=== PATIENT | male | born 1930 | race Caucasian/White ===

== ENCOUNTER 2018-09-04 16:29 | Inpatient (IN) | payer OTHER ==
[~2018-09-04] VITALS: Ht 180.3 cm; Wt 80.9 kg
[2018-09-04 16:50] LABS: Basophils # (auto) 0 uL; Basophils % (auto) 0.2 % (0.0-2.0); Eosinophils # (auto) 0.7 uL; Eosinophils % (auto) 8.2 % (0.0-7.0); Hematocrit 34.6 % (41.0-53.0); Hemoglobin 11.9 g/dL (13.5-17.5); Lymphocytes # (auto) 1.2 uL; Lymphocytes % (auto) 13.9 % (10.0-50.0); Mean Corpuscular Hemoglobin 33.4 pg (28.0-32.0); Mean Corpuscular Hgb Conc. 34.3 g/dL (32.0-36.0); Mean Corpuscular Volume 97.2 fL (80.0-100.0); Monocytes # (auto) 0.9 uL; Monocytes % (auto) 10.9 % (0.0-12.0); Neutrophils # (auto) 5.8 uL; Neutrophils % (auto) 66.8 % (37.0-80.0); Nucleated Red Blood Cells % 0.3 %; Platelet Count (auto) 345 10^3/uL (140-450); Red Blood Cells 3.56 10^6/uL (4.5-5.90); Red Cell Distribution Width 13.4 % (11.8-14.3); White Blood Cell 8.7 10^3/uL (4.4-10.8)
[2018-09-04 17:07] LABS: Albumin 2.5 g/dL (3.4-5.0); BUN/Creatinine Ratio 10.4; Calcium 7.9 mg/dL (8.5-10.1); Magnesium 2.1 mg/dL (1.6-2.6); Potassium 3.9 mmol/L (3.5-5.1)
[2018-09-04 17:12] LABS: Bilirubin, Total 0.8 mg/dL (0.2-1.0); Total Protein 7.1 g/dL (6.4-8.2)
[2018-09-04] MEDS ORDERED: IOHEXOL 350 MG/ML 100ML IJ ONE (17:41)
[2018-09-04] MEDS ORDERED: ENOXAPARIN SOD 100 MG/1 ML SYRINGE SC ONE (19:15)
[2018-09-04] MEDS ORDERED: FUROSEMIDE 40 MG/4 ML VIAL IV ONE (21:45)
[2018-09-04] MEDS ORDERED: MORPHINE SULFATE 4 MG/ML SYR/VIAL IV PRN (23:30)
[2018-09-04] MEDS ORDERED: ONDANSETRON HCL 4 MG/2 ML VIAL IV PRN (23:30)
[2018-09-04] MEDS ORDERED: NITROGLYCERIN 0.4 MG SL TAB SL PRN (23:30)
[2018-09-04] MEDS ORDERED: ACETAMINOPHEN 500 MG TAB PO PRN (23:30)
[2018-09-05 03:00] VITALS: BP 121/85
[2018-09-05 04:56] LABS: Urine WBC None Seen /hpf (0 - 3)
[2018-09-05 05:00] VITALS: BP 118/69
[2018-09-05 05:02] LABS: Urine Bacteria NONE SEEN /hpf (None Seen); Urine Blood TRACE /uL (Negative); Urine Specific Gravity 1.009 (1.001-1.035)
[2018-09-05 05:20] LABS: Basophils # (auto) 0.1 uL; Eosinophils # (auto) 0.5 uL; Neutrophils # (auto) 5.3 uL
[2018-09-05 05:23] LABS: Basophils % (auto) 1.4 % (0.0-2.0); Eosinophils % (auto) 6.7 % (0.0-7.0); Hematocrit 36.3 % (41.0-53.0); Hemoglobin 12.7 g/dL (13.5-17.5); Lymphocytes % (auto) 12.7 % (10.0-50.0); Mean Corpuscular Hgb Conc. 35.2 g/dL (32.0-36.0); Mean Corpuscular Volume 98.8 fL (80.0-100.0); Neutrophils % (auto) 66.2 % (37.0-80.0); Platelet Count (auto) 351 10^3/uL (140-450); Red Blood Cells 3.67 10^6/uL (4.5-5.90); Red Cell Distribution Width 13.2 % (11.8-14.3); White Blood Cell 7.9 10^3/uL (4.4-10.8)
[2018-09-05 05:24] LABS: Mean Corpuscular Hemoglobin 34.1 pg (28.0-32.0)
[2018-09-05 05:35] LABS: BUN/Creatinine Ratio 10.6; Calcium 8.4 mg/dL (8.5-10.1); Potassium 3.1 mmol/L (3.5-5.1)
[2018-09-05] MEDS ORDERED: TIM05OS EACHEYE (05:49)
[2018-09-05] MEDS ORDERED: [UNRECOGNIZED DRUG - CODE] OP (05:49)
[2018-09-05] MEDS ORDERED: OMEP20TA PO (05:49)
[2018-09-05] MEDS ORDERED: LOVA20TA4 PO (05:49)
[2018-09-05] MEDS ORDERED: LEVO25TA6 PO (05:49)
[2018-09-05] MEDS ORDERED: ASPI325T4 PO (05:49)
[2018-09-05] MEDS ORDERED: POTASSIUM CHL 20 Meq TABLET PO ONE ×2 (06:15→14:45)
[2018-09-05] MEDS: ENOXAPARIN SOD 80 MG/0.8ML SYRINGE SC SCH ×2 (08:03→21:29)
[2018-09-05 09:00] VITALS: BP 117/66
[2018-09-05] MEDS ORDERED: ASPirin-EC 81 mg tab PO SCH (10:00)
[2018-09-05 12:41] LABS: INR 1.12 (0.9-1.15); Partial Thromboplastin Time 31.6 sec (23.78-33.04); Prothrombin Time 11.9 sec (9.27-12.13)
[2018-09-05] MEDS ORDERED: LIDOCAINE 2%HCL (LOCAL ANESTH.) INJ 10ml MDV ONE (12:51)
[2018-09-05] MEDS ORDERED: IOHEXOL 350 MG/ML 100ML IJ ONE (12:51)
[2018-09-05 13:00] VITALS: BP 111/69
[2018-09-05] MEDS ORDERED: MIDAZOLAM HCL 1MG/1ML-2 ML VIAL ONE (13:01)
[2018-09-05] MEDS ORDERED: SODIUM CHL 0.9% 0 ML ONE (13:01)
[2018-09-05] MEDS ORDERED: ANGIOMAX 250 MG VIAL IV ONE (13:01)
[2018-09-05 16:44] VITALS: BP 115/70
[2018-09-05 21:59] VITALS: BP 112/66
[2018-09-06 05:00] VITALS: BP 124/73
[2018-09-06] MEDS ORDERED: ENOXAPARIN SOD 80 MG/0.8ML SYRINGE SC SCH (06:45)
[2018-09-06 07:00] LABS: Basophils # (auto) 0.2 uL; Basophils % (auto) 2.2 % (0.0-2.0); Eosinophils # (auto) 0.5 uL; Eosinophils % (auto) 6.8 % (0.0-7.0); Hematocrit 35.6 % (41.0-53.0); Hemoglobin 12.1 g/dL (13.5-17.5); Lymphocytes # (auto) 0.9 uL; Mean Corpuscular Hemoglobin 33.7 pg (28.0-32.0); Monocytes # (auto) 0.8 uL; Monocytes % (auto) 11.8 % (0.0-12.0); Neutrophils # (auto) 4.6 uL; Neutrophils % (auto) 66.2 % (37.0-80.0); Nucleated Red Blood Cells % 0.1 %; Platelet Count (auto) 390 10^3/uL (140-450); Red Cell Distribution Width 13.2 % (11.8-14.3)
[2018-09-06 07:21] LABS: Albumin 2.3 g/dL (3.4-5.0); BUN/Creatinine Ratio 10.7; Calcium 8.6 mg/dL (8.5-10.1); Potassium 4.6 mmol/L (3.5-5.1)
[2018-09-06 07:24] LABS: Bilirubin, Total 0.6 mg/dL (0.2-1.0); Total Protein 7.2 g/dL (6.4-8.2)
[2018-09-06 08:00] VITALS: BP 127/78
[2018-09-06 08:08] LABS: CRP High Sensitivity 9.43 mg/dL (< 0.3)
[2018-09-06] MEDS: ENOXAPARIN SOD 80 MG/0.8ML SYRINGE SC SCH ×2 (09:21→21:31)
[2018-09-06] MEDS ORDERED: LEV100T PO (11:44)
[2018-09-06] MEDS ORDERED: GLUC1CAP11 PO (11:44)
[2018-09-06] MEDS ORDERED: CHOL20007 PO (11:44)
[2018-09-06] MEDS ORDERED: COEN100C15 PO (11:44)
[2018-09-06] MEDS ORDERED: OME20T PO (11:44)
[2018-09-06] MEDS ORDERED: LOVA10TA2 PO (11:44)
[2018-09-06 12:00] VITALS: BP 118/70
[2018-09-06 16:00] VITALS: BP 130/80
[2018-09-06 21:30] VITALS: BP 118/72
[2018-09-06] MEDS: PRAVASTATIN SODIUM 20 MG TAB PO SCH (21:31)
[2018-09-06] MEDS: TIMOLOL MAL 0.5% OPTH(EYE) SOL 5ML EACHEYE SCH (22:06)
[2018-09-06] MEDS: FLUOROMETHOLONE ACETATE OP SCH (22:07)
[2018-09-07 05:00] VITALS: BP 129/79
[2018-09-07] MEDS: LEVOTHYROXINE SODIUM 100 MCG TAB PO SCH (06:02)
[2018-09-07 09:00] VITALS: BP 123/74
[2018-09-07] MEDS: ENOXAPARIN SOD 80 MG/0.8ML SYRINGE SC SCH ×2 (09:59→21:23)
[2018-09-07] MEDS: PANTOPRAZOLE 40 MG TAB PO SCH (10:00)
[2018-09-07] MEDS: FLUOROMETHOLONE ACETATE OP SCH ×2 (10:00→21:23)
[2018-09-07] MEDS: TIMOLOL MAL 0.5% OPTH(EYE) SOL 5ML EACHEYE SCH ×2 (10:00→21:22)
[2018-09-07 13:00] VITALS: BP 107/67
[2018-09-07 17:00] VITALS: BP 126/77
[2018-09-07] MEDS: PRAVASTATIN SODIUM 20 MG TAB PO SCH (21:23)
[2018-09-07 22:00] VITALS: BP 131/75
[2018-09-08] VITALS (25 sets, daily range): BP systolic 96–129; BP diastolic 46–76
[2018-09-08] MEDS: LEVOTHYROXINE SODIUM 100 MCG TAB PO SCH (06:03)
[2018-09-08 06:04] LABS: Basophils # (auto) 0.1 uL; Eosinophils # (auto) 0.6 uL; Lymphocytes # (auto) 1.1 uL; Monocytes # (auto) 0.9 uL
[2018-09-08 06:11] LABS: Basophils % (auto) 1.3 % (0.0-2.0); Eosinophils % (auto) 8.9 % (0.0-7.0); Hematocrit 35.5 % (41.0-53.0); Hemoglobin 12.3 g/dL (13.5-17.5); Lymphocytes % (auto) 15.1 % (10.0-50.0); Mean Corpuscular Hgb Conc. 34.6 g/dL (32.0-36.0); Mean Corpuscular Volume 98.1 fL (80.0-100.0); Monocytes % (auto) 12.9 % (0.0-12.0); Neutrophils # (auto) 4.3 uL; Neutrophils % (auto) 61.8 % (37.0-80.0); Nucleated Red Blood Cells % 0.2 %; Platelet Count (auto) 389 10^3/uL (140-450); Red Blood Cells 3.62 10^6/uL (4.5-5.90); Red Cell Distribution Width 13.5 % (11.8-14.3)
[2018-09-08 06:36] LABS: Albumin 2.3 g/dL (3.4-5.0); BUN/Creatinine Ratio 11.3; Calcium 8.3 mg/dL (8.5-10.1); Potassium 3.7 mmol/L (3.5-5.1)
[2018-09-08 06:39] LABS: Bilirubin, Total 0.4 mg/dL (0.2-1.0); Total Protein 7.2 g/dL (6.4-8.2)
[2018-09-08] MEDS ORDERED: LIDOCAINE 2%HCL (LOCAL ANESTH.) INJ 20ML MDV ONE (07:30)
[2018-09-08] MEDS ORDERED: IODIXANOL 320MG/ML 100ML BTL IV ONE (07:30)
[2018-09-08] MEDS ORDERED: VERAPAMIL 2.5MG/ML INJ 2ML VIAL IV ONE (09:47)
[2018-09-08] MEDS ORDERED: MIDAZOLAM HCL 1MG/1ML-2 ML VIAL ONE ×2 (09:48→12:29)
[2018-09-08] MEDS ORDERED: fentaNYL CITRATE 100 MCG/2 ML VL ONE (09:48)
[2018-09-08] MEDS ORDERED: SODIUM CHL 0.9% 0 ML ONE (09:49)
[2018-09-08] MEDS ORDERED: NITROGLYCERIN 5MG/ML 10ML VIAL IV ONE (09:49)
[2018-09-08] MEDS: TIMOLOL MAL 0.5% OPTH(EYE) SOL 5ML EACHEYE SCH ×2 (10:00→22:07)
[2018-09-08] MEDS: FLUOROMETHOLONE ACETATE OP SCH ×2 (10:00→22:00)
[2018-09-08] MEDS: ENOXAPARIN SOD 80 MG/0.8ML SYRINGE SC SCH (10:00)
[2018-09-08] MEDS: PANTOPRAZOLE 40 MG TAB PO SCH (10:00)
[2018-09-08] MEDS ORDERED: ANGIOMAX 250 MG VIAL IV ONE (10:24)
[2018-09-08] MEDS ORDERED: ATROPINE SULF 1 MG/10ml SYR ONE (10:46)
[2018-09-08] MEDS ORDERED: LIDOCAINE 2%HCL (LOCAL ANESTH.) INJ 10ml MDV ONE (10:54)
[2018-09-08] MEDS ORDERED: HEPARIN SODIUM (PORCINE) 5000 UNITS/ML 1ML VIAL ONE ×2 (11:00→11:16)
[2018-09-08] MEDS ORDERED: CLOPIDOGREL 300 MG TAB ONE (13:21)
[2018-09-08] MEDS ORDERED: ASPirin 325 MG TAB ONE (13:21)
[2018-09-08] MEDS: APIXABAN 5 MG TAB PO SCH (22:07)
[2018-09-08] MEDS: PRAVASTATIN SODIUM 20 MG TAB PO SCH (22:07)
[2018-09-09] VITALS (51 sets, daily range): BP systolic 98–143; BP diastolic 49–81
[2018-09-09] MEDS: LEVOTHYROXINE SODIUM 100 MCG TAB PO SCH (06:34)
[2018-09-09] MEDS: FLUOROMETHOLONE ACETATE OP SCH ×2 (10:00→21:13)
[2018-09-09] MEDS ORDERED: PATIENTS OWN MEDICATION (ELIQUIS 5 MG) PO SCH (10:00)
[2018-09-09] MEDS: TIMOLOL MAL 0.5% OPTH(EYE) SOL 5ML EACHEYE SCH ×2 (10:19→21:14)
[2018-09-09] MEDS: PANTOPRAZOLE 40 MG TAB PO SCH (10:19)
[2018-09-09] MEDS: APIXABAN 5 MG TAB PO SCH ×2 (10:19→21:13)
[2018-09-09] MEDS: PRAVASTATIN SODIUM 20 MG TAB PO SCH (21:13)
[2018-09-10 05:00] VITALS: BP 119/69
[2018-09-10] MEDS: LEVOTHYROXINE SODIUM 100 MCG TAB PO SCH (06:33)
[2018-09-10 09:00] VITALS: BP 121/77
[2018-09-10] MEDS: APIXABAN 5 MG TAB PO SCH ×2 (09:36→22:01)
[2018-09-10] MEDS: CLOPIDOGREL BISULFATE 75 MG TAB PO SCH (09:36)
[2018-09-10] MEDS: PANTOPRAZOLE 40 MG TAB PO SCH (09:36)
[2018-09-10] MEDS: TIMOLOL MAL 0.5% OPTH(EYE) SOL 5ML EACHEYE SCH ×2 (09:37→22:01)
[2018-09-10] MEDS: FLUOROMETHOLONE ACETATE OP SCH ×2 (09:37→22:01)
[2018-09-10 17:04] VITALS: BP 112/71
[2018-09-10 22:00] VITALS: BP 120/72
[2018-09-10] MEDS ORDERED: ATORVASTATIN 20 MG TAB PO SCH (22:00)
[2018-09-10] MEDS: PRAVASTATIN SODIUM 20 MG TAB PO SCH (22:02)
[2018-09-11 05:00] VITALS: BP 115/66
[2018-09-11] MEDS: LEVOTHYROXINE SODIUM 100 MCG TAB PO SCH (06:32)
[2018-09-11 08:07] VITALS: BP 136/77
[2018-09-11] MEDS: FLUOROMETHOLONE ACETATE OP SCH (10:00)
[2018-09-11] MEDS: APIXABAN 5 MG TAB PO SCH (10:06)
[2018-09-11] MEDS: CLOPIDOGREL BISULFATE 75 MG TAB PO SCH (10:06)
[2018-09-11] MEDS: PANTOPRAZOLE 40 MG TAB PO SCH (10:07)
[2018-09-11] MEDS: TIMOLOL MAL 0.5% OPTH(EYE) SOL 5ML EACHEYE SCH (10:07)
[2018-09-11 13:00] VITALS: BP 121/80
[2018-09-11 16:25] VITALS: BP 120/81
[2018-09-11 17:00] VITALS: BP 120/81
[2018-09-15] MEDS ORDERED: APIXABAN 5 MG TAB PO SCH (22:00)
== END 2018-09-11 18:05 | DRG 215 ==
LOC: ER 16:29 → TELE 16:30 → TELE-CENTR 09-05 02:43 → ICU WEST 09-08 13:32 → TELE-WESTW 09-09 22:25
PROVIDERS: ADMIT Nurse Practitioner Family; ATTEND Hospitalist
PROC: 4A023N7 Measurement of Cardiac Sampling and Pressure, Left Heart, Percutaneous Approach (ICD-10-PCS; principal; 2018-09-05)
PROC: B2111ZZ Fluoroscopy of Multiple Coronary Arteries using Low Osmolar Contrast (ICD-10-PCS; 2018-09-05)
PROC: B2151ZZ Fluoroscopy of Left Heart using Low Osmolar Contrast (ICD-10-PCS; 2018-09-05)
PROC: 02HA3RJ Insertion of Short-term External Heart Assist System into Heart, Intraoperative, Percutaneous Approach (ICD-10-PCS; 2018-09-08)
PROC: 027237Z Dilation of Coronary Artery, Three Arteries with Four or More Drug-eluting Intraluminal Devices, Percutaneous Approach (ICD-10-PCS; 2018-09-08)
PROC: 02C13ZZ Extirpation of Matter from Coronary Artery, Two Arteries, Percutaneous Approach (ICD-10-PCS; 2018-09-08)
PROC: 5A0221D Assistance with Cardiac Output using Impeller Pump, Continuous (ICD-10-PCS; 2018-09-08)
DX: I21.4 Non-ST elevation (NSTEMI) myocardial infarction (principal); I50.33 Acute on chronic diastolic (congestive) heart failure; I82.532 Chronic embolism and thrombosis of left popliteal vein; N18.3 Chronic kidney disease, stage 3 (moderate); E03.9 Hypothyroidism, unspecified; E78.5 Hyperlipidemia, unspecified; R79.1 Abnormal coagulation profile; R54 Age-related physical debility; I25.119 Atherosclerotic heart disease of native coronary artery with unspecified angina pectoris; I70.0 Atherosclerosis of aorta; Z90.49 Acquired absence of other specified parts of digestive tract; Z90.89 Acquired absence of other organs; Z85.828 Personal history of other malignant neoplasm of skin
CPT/HCPCS: 33990; 36415; 36600; 71045; 71275; 80048; 80053; 81001; 82805; 83735; 83880; 84443; 84484; 85025; 85379; 85610; 85730; 86141; 86850; 86900; 86901; 87081; 92928; 92933; 93005; 93306; 93458; 93970; 96372; 96374; 97110; 97116; 97163; 97530; 99152; 99291; A6257; C1769; C1874; C1887; G0378; J2001; J2250; J3490; Q9967